=== PATIENT | female | born 1935 | race Caucasian/White ===

== ENCOUNTER → 2016-06-15 | Outpatient (CLI) | payer OTHER, BC ==
[~2016-06-15] MED LIST: CALCTAB7 PO; CHOL100027 PO; GLCSC500400 PO; TRIA0.1C55 TOP
[2016-06-15 16:49] LABS: BASO % 0.7 %; BASO ABS # 0.05 K/uL (0-0.2); COMPLETE YES; EOS % 3.8 %; HEMATOCRIT 43.2 % (37-47); IG% 0.4 %; LYMPH % 18.8 %; LYMPH ABS # 1.29 K/uL (1.2-3.4); MEAN CELL VOLUME 86.4 fL (80-100); MEAN CORPUSCULAR HGB CONC 34.7 g/dl (32-36); MEAN PLATELET VOLUME 9.4 fL (7.4-10.4); MONO % 14.6 %; NEUT % 61.7 %; PLATELET COUNT 197 K/uL (130-400); WHITE BLOOD COUNT 6.86 K/uL (4.8-10.8)
[2016-06-15 17:05] LABS: ALT/SGPT 38 U/L (12-78); AST/SGOT 24 U/L (15-37); BLOOD UREA NITROGEN 16 mg/dl (7-18); BUN/CREATININE RATIO 18.7 (10-20); CARBON DIOXIDE 31 mmol/L (21-32); CHLORIDE 106 mmol/L (98-107); CREATININE 0.86 mg/dl (0.60-1.20); GLUCOSE 78 mg/dl (70-99); POTASSIUM 4.3 mmol/L (3.5-5.1); SODIUM 142 mmol/L (136-145)
[2016-06-15 17:10] LABS: ALB/GLOB RATIO 1.5 (0.9-2); ALKALINE PHOSPHATASE 64 U/L (45-117); FERRITIN 67.9 ng/ml (8.0-388.0)
[2016-06-15 17:20] LABS: LYME DISEASE AB IGG NEG (NEG); LYME DISEASE AB IGM NEG (NEG)
[2016-06-16 05:46] LABS: ESTIMATED AVERAGE GLUCOSE 105 mg/dl; HA1C FLAG Normal (Normal)
== END | disposition home or self-care (01) ==
LOC: C.LABBFT 11:15
PROVIDERS: ATTEND Internal Medicine
DX: Z00.00 Encounter for general adult medical examination without abnormal findings (principal); A69.20 Lyme disease, unspecified; E78.5 Hyperlipidemia, unspecified; M19.90 Unspecified osteoarthritis, unspecified site; R73.01 Impaired fasting glucose; G62.9 Polyneuropathy, unspecified; R06.09 Other forms of dyspnea; G47.62 Sleep related leg cramps; E55.9 Vitamin D deficiency, unspecified

== ENCOUNTER → 2017-10-10 | Outpatient (CLI) | payer OTHER, BC | END | disposition home or self-care (01) | LOC: C.MAMM 13:08 | PROVIDERS: ATTEND Internal Medicine | DX: M85.89 Other specified disorders of bone density and structure, multiple sites (principal); Z78.0 Asymptomatic menopausal state ==

== ENCOUNTER → 2017-10-17 | Outpatient (CLI) | payer OTHER, BC ==
--- NOTE | 2017-10-17 15:12 | MAMMOGRAPHY REPORT ---
BILATERAL DIGITAL SCREENING MAMMOGRAM TOMOSYNTHESIS WITH CAD: 10/17/2017 CLINICAL HISTORY: Routine screening. Patient has no complaints. TECHNIQUE: The study was acquired using full field digital technology and interpreted from soft copy. Breast tomosynthesis in addition to standard 2D mammography was performed. Current study was also ev aluated with a Computer Aided Detection (CAD) system. COMPARISON: Comparison is made to exam dated: 04/06/2015 mammogram - [facility]. BREAST COMPOSITION: There are scattered areas of fibroglandular density in both breasts. FINDINGS: No suspicious masses, calcifications, or areas of architectural distortion are noted in either breast . There has been no significant interval change compared to prior exams. IMPRESSION: ACR BI-RADS CATEGORY 1: NEGATIVE There is no mammographic evidence of malignancy. A 1 year screening mammogram is recommended.( 019) The patient will receive written notification of the results. Some breast cancers are not detected with mammography. A negative mammographic report should not rachell y biopsy if a clinically suggestive mass is present. Jannet Javier M.D. ah/:10/17/2017 12:08:29 Provider Relations Specialist: Aisha Catherine RT(R)(M), [facility] letter sent: Normal /2 BI-RADS Code: ACR BI-RADS Category 1: Negative
== END | disposition home or self-care (01) ==
LOC: C.MAMM 11:08
PROVIDERS: ATTEND Internal Medicine
DX: Z12.31 Encounter for screening mammogram for malignant neoplasm of breast (principal)

== ENCOUNTER → 2017-10-30 | Outpatient (CLI) | payer OTHER, BC ==
--- NOTE | 2017-10-30 12:54 | DIAGNOSTIC IMAGING REPORT ---
THORACIC SPINE 3 VIEWS ROUTINE CLINICAL HISTORY: M81.0 [id number] back [id number] COMPARISON STUDY: No previous studies for comparison. FINDINGS: There is a thoracolumbar scoliosis. There are multilevel degenerative changes. No acute fractures are visualized. No destructive lesions are evident. IMPRESSION: Scoliosis and mild to moderate multilevel degenerative change. No acute fractures. Electronically signed by: Eric Hoang M.D. 10/30/2017 12:52 PM Dictated Date/Time: 10/30/2017 12:52 PM
[2017-10-30 13:55] LABS: CALCIUM 9.2 mg/dl (8.5-10.1)
== END | disposition home or self-care (01) ==
LOC: C.RAD1850 12:27
PROVIDERS: ATTEND Internal Medicine
DX: M81.0 Age-related osteoporosis without current pathological fracture (principal); M41.24 Other idiopathic scoliosis, thoracic region; M47.814 Spondylosis without myelopathy or radiculopathy, thoracic region

== ENCOUNTER 2018-10-15 18:29 | Observation (INO) ==
[2018-10-15 19:07] LABS: Basophils # (auto) 0.03 K/uL (0-0.2); Basophils % (auto) 0.3 %; Eosinophils # (auto) 0.19 K/uL (0-0.5); Hematocrit (blood only) 43.2 % (37-47); Hemoglobin 15.1 g/dL (12.0-16.0); Immature Granulocytes # (auto) 0.04 K/uL (0.00-0.02); Immature Granulocytes % (auto) 0.4 %; Lymphocytes # (auto) 1.24 K/uL (1.2-3.4); Lymphocytes % (auto) 13.2 %; Mean Corpuscular Volume 86.4 fL (80-100); Mean Platelet Volume 9.2 fL (7.4-10.4); Monocytes # (auto) 1.18 K/uL (0.11-0.59); Monocytes % (auto) 12.6 %; Neutrophils # (auto) 6.71 K/uL (1.4-6.5); Neutrophils % (auto) 71.5 %; Platelet Count 199 K/uL (130-400); RDW Coefficient of Variation 14.7 % (11.5-14.5); RDW Standard Deviation 46.1 fL (36.4-46.3); White Blood Count 9.39 K/uL (4.8-10.8)
--- NOTE | 2018-10-15 19:29 | XRay Report ---
XR chest 1V portable CLINICAL HISTORY: Forgetfulness, confusion COMPARISON STUDY: Chest radiograph and chest CT December 13, 2018. FINDINGS: Lung volumes are normal. Minimal left basilar opacity favors atelectasis. There is no pneum othorax or pleural effusion. Mild cardiomegaly is noted. Mediastinal contours are normal. There is no evidence for pulmonary edema. IMPRESSION: No acute cardiopulmonary findings. Electronically signed by: Taco Lynch M.D. 10/15/2018 7:27 PM
--- NOTE | 2018-10-15 19:35 | CT Scan Report ---
CT OF THE HEAD WITHOUT CONTRAST CLINICAL HISTORY: Memory loss. COMPARISON STUDY: No previous studies for comparison. CT DOSE: 537.48 mGy.cm TECHNIQUE: Helical axial images of the head were obtained without IV contrast. Automated exposure con trol was utilized for the study. A dose lowering technique was utilized adhering to the principles o f ALARA. FINDINGS: No acute intracranial hemorrhage, midline shift or mass effect is present. The ventricular system is unremarkable. The basilar cisterns are patent. No extra-axial collections are present. Ther e are no findings to suggest acute dural sinus thrombosis or acute territorial infarct. No significan t calvarial abnormalities are present. Left sphenoid sinus mucosal thickening is likely chronic. Mild atrophy is age-appropriate. IMPRESSION: No acute intracranial findings. Electronically signed by: Taco Lynch M.D. 10/15/2018 7:34 PM
[2018-10-15 19:37] LABS: Albumin Level 4.1 gm/dl (3.4-5.0); BUN Creatinine Ratio 15.8 (10-20); Bilirubin Direct 0.2 mg/dl (0-0.2); Blood Urea Nitrogen 13 mg/dl (7-18); Calcium 8.7 mg/dl (8.5-10.1); Carbon Dioxide 29 mmol/L (21-32); Chloride 106 mmol/L (98-107); Creatinine Clr Calc Pharmacy 34.6 ml/min; Est GFR (African American) 74.5; Est GFR (Non-African American) 64.3; Glucose 96 mg/dl (70-99); Potassium 3.7 mmol/L (3.5-5.1); Sodium 140 mmol/L (136-145)
[2018-10-15 19:48] LABS: Alanine Aminotransferase 27 U/L (12-78); Alkaline Phosphatase 42 U/L (45-117); Aspartate Aminotransferase 21 U/L (15-37); Bilirubin,Total 0.7 mg/dl (0.2-1); Total Protein 6.7 gm/dl (6.4-8.2); Troponin I < 0.015 ng/ml (0-0.045)
[2018-10-15 20:33] LABS: Appearance Urine Clear (Clear); Bacteria Urine Automated Negative (Negative); Bilirubin Urine Negative (Negative); Blood Urine Negative (Negative); Cast Urine Automated 0 /lpf (0-5); Color Urine Yellow; Glucose Urine UA Negative (Negative); Ketones Urine 1+ (Negative); Leukocyte Esterase Urine 1+ (Negative); Nitrite Urine Negative (Negative); Protein Urine Negative (Negative); RBC Urine Automated 0-4 /hpf (0-4); Specific Gravity Urine 1.015 (1.000-1.030); Urobilinogen Urine Negative (Negative); pH Urine 6.5 (4.5-7.5)
--- NOTE | 2018-10-15 21:58 | History & Physical Report ---
Date of Service October 15, 2018 Assessment & Plan (1) Altered mental status: #AMS Patient presents with a clinical history of altered mental status (mainly memory deficits) and bilateral hearing deficits. Imaging was unremarkable for stroke or other acute intracranial abnormalities. Upon presentation to the emergency department her cognitive function improved and she no longer had memory deficits. Given the acuity of these patients mental status changes, and no other definitive cause of her symptoms, she will be admitted for observation and stroke rule out. I am not certain whether her memory deficit symptoms are over exaggerated and really secondary to inability to hear versus a transient ischemic attack versus secondary to infection as noted below. Given that her daughter has a history of multiple sclerosis that began with peripheral neuropathy, the patient has peripheral neuropathy, and the patient is presenting with symptoms the could be an atypical form of multiple sclerosis if the inpatient work-up is negative could consider evaluation for multiple sclerosis as an outpatient -CT of brain negative for acute intracranial abnormalities Electrolytes within normal limits Brain MRI to rule out stroke VTE prophylaxis contraindicated secondary to concern for stroke -stoke protocol w/o tpa Consider referral for evaluation of multiple sclerosis as an outpatient #Hearing loss Patient's physical exam findings are not consistent with a sensory hearing loss, she demonstrated a normal Martines test, and an abnormal Rinne test on the right side. Indicating that sensory olivas her hearing was intact, she has the ability to hear however there is likely a conduction problem worse on the right side. Furthermore given the inability to adequately visualize the inner ear landmarks, the patient's borderline elevated white blood cell count, with a neutrophil predominance and elevated monocytes, clinical history of swimming in the [place], and past medical history of asthma I am concerned that this patient has otitis media secondary to eustachian tube dysfunction from seasonal allergies/asthma. 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 Patient presents to the [facility] emergency department for evaluation of mental status changes concerning for transient ischemic attack versus stroke. Patient presents with her daughter, who assisted with obtaining the medical history per the patient and her daughter the patient was in her usual state of health until last Saturday. Last Saturday they were swimming [place] while at their camp, and upon drying off and changing the patient began to notice that her hearing was becoming muffled. At that time the patient had no other symptoms including fever, chills, nausea, vomiting, vertigo, change in bowel or bladder function, motor or sensory dysfunction, or memory problems. As the weekend progressed the patient's family members began to notice that she was acting abnormal particularly with reference to her memory. She was becoming increasingly forgetful, particularly when he came to names. The patient also endorsed that during this timeframe her hearing was not good, however she did not want to admit this to her family members, so she acted as if her hearing was normal. The family reports additionally during the weekend she seemed zoned out but that is likely secondary to her not hearing. The patient's hearing did not improve throughout the weekend, and no other symptoms developed aside from the memory deficits. Today the patient drove herself to the ear nose and throat doctor for evaluation of her hearing difficulties, the ear nose and throat doctor was more concerned with her memory problems, and referred her to the primary care physician. She was evaluated by a PA at the PCPs office who felt that she perform significantly worse on her, only recalling one word, and was unable to recall the time she was asked to draw the clock face. She was referred for further evaluation and is there was concern for a CVA versus transient ischemic attack causing her hearing problems and memory issues On presentation to the ER today, all of her memory issues had returned to normal.Her head CT demonstrated no acute intracranial findings with the exception of mild atrophy that is age-appropriate. Her chest x-ray was negative for cardiopulmonary findings her CBC demonstrated white blood cell count of 9.3 with a neutrophil predominance of 6.7 elevation of monocytes of 1.18. A CMP was obtained and was within normal limits, TSH was normal, UA was negative, at the patient's request Lyme titers were ordered. The emergency department referred the patient to the inpatient team for admission. She was subsequently admitted to the observation service for further evaluation and management Of note patient does endorse that her mother had hx of TIA Allergies Allergy/AdvReac Type Severity Reaction Status Date / Time mold Allergy Unknown nasal Verified 10/15/18 21:37 congestion [place] Allergy Unknown nasal Uncoded 10/15/18 21:37 congestion Home Medications Home Medications Medication Instructions Recorded Confirmed Type biotin 2,500 mcg capsule 2,500 mcg PO DAILY 10/15/18 10/15/18 History cholecalciferol (vitamin D3) 2,000 2,000 units PO Q OTHER DAY 10/15/18 10/15/18 History unit capsule gabapentin 300 mg PO HS 10/15/18 10/15/18 History ginkgo biloba 40 mg capsule 40 mg PO Q OTHER DAY cap 10/15/18 10/15/18 History ketoconazole [Nizoral] 1 applic TOPICAL DAILY 10/15/18 10/15/18 History naproxen sodium [Aleve] 220 mg PO BID PRN 10/15/18 10/15/18 History valacyclovir 1 gram tablet 1,000 mg PO DAILY PRN 10/15/18 10/15/18 History cefdinir 300 mg PO BID 5 Days #13 cap 10/16/18 Rx Past Med/Surg History Medical History Asthma History of Lyme disease (Resolved) Surgical History S/P tonsillectomy Family History Mother , age 96 of heart issues. 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 When using a tuning fork, she stated her hearing deficit was worse in the right ear than the left ear( positive lydia on the right side). She had a negative Martines test. On visualization, bilateral tympanic membranes were not translucent, I was unable to visualize landmarks, right ear was slightly erythematous Neck: Normal visual inspection, trachea midline, negative JVD Cardiac: Regular rate and rhythm, normal S1, normal S2, I do not appreciate any murmurs rubs or gallops, negative pedal edema, negative calf tenderness Respiratory: Clear to auscultation bilaterally, symmetrical to chest rise, no increased work of breathing GI: Normal bowel sounds, soft, nontender, nondistended MSK: Moves all extremities, no focal motor or sensory deficits Skin: No new rashes Neuro: CN II through XII intact, motor function grossly intact, sensory function was grossly intact, no focal findings Psych: Calm, cooperative, pleasant Results & Data Vital Signs (Past 12 Hours) Vital Signs Temp Pulse Pulse Resp BP BP Pulse Ox 10/15/18 21:00 81 18 134/102 H 97 10/15/18 20:30 64 13 124/69 96 10/15/18 20:00 68 12 117/62 95 10/15/18 19:02 96 10/15/18 18:58 72 18 140/108 H 96 10/15/18 18:32 36.7 C 85 20 165/89 H 95 Laboratory Results 10/15/18 10/15/18 10/15/18 Range/Units 21:14 19:46 18:56 WBC (4.8-10.8) K/uL RBC (4.2-5.4) M/uL Hgb (12.0-16.0) g/dL Hct (37-47) % MCV (80-100) fL MCH (25-34) pg MCHC (32-36) g/dL RDW Std Deviation (36.4-46.3) fL RDW Coeff of Jere (11.5-14.5) % Plt Count (130-400) K/uL MPV (7.4-10.4) fL Immature Gran % (Auto) % Neut % (Auto) % Lymph % (Auto) % [place] % (Auto) % Eos % (Auto) % Baso % (Auto) % Immature Gran # (Auto) (0.00-0.02) K/uL Neut # (Auto) (1.4-6.5) K/uL Lymph # (Auto) (1.2-3.4) K/uL [place] # (Auto) (0.11-0.59) K/uL Eos # (Auto) (0-0.5) K/uL Baso # (Auto) (0-0.2) K/uL Sodium 140 (136-145) mmol/L Potassium 3.7 (3.5-5.1) mmol/L Chloride 106 (98-107) mmol/L Carbon Dioxide 29 (21-32) mmol/L Anion Gap 5.0 (3-11) BUN 13 (7-18) mg/dl Creatinine 0.84 (0.6-1.2) mg/dl Est Cr Clr Drug Dosing 34.6 ml/min Est GFR ( Amer) 74.5 Est GFR (Non-Af Amer) 64.3 BUN/Creatinine Ratio 15.8 (10-20) Glucose 96 (70-99) mg/dl Calcium 8.7 (8.5-10.1) mg/dl Total Bilirubin 0.7 Direct Bilirubin 0.2 AST 21 ALT 27 Alkaline Phosphatase 42 L Troponin I < 0.015 (0-0.045) ng/ml Total Protein 6.7 Albumin 4.1 TSH 1.520 Urine Color Yellow Urine Appearance Clear (Clear) Urine pH 6.5 (4.5-7.5) Ur Specific [place] 1.015 (1.000-1.030) Urine Protein Negative (Negative) Urine Glucose (UA) Negative (Negative) Urine Ketones 1+ H (Negative) Urine Blood Negative (Negative) Urine Nitrite Negative (Negative) Urine Bilirubin Negative (Negative) Urine Urobilinogen Negative (Negative) Ur Leukocyte Esterase 1+ H (Negative) Urine WBC (Auto) 1-5 (0-5) /hpf Urine RBC (Auto) 0-4 (0-4) /hpf U Hyaline Cast (Auto) 0 (0-5) /lpf U Epithel Cells (Auto) 5-10 H (0-5) /lpf Urine Bacteria (Auto) Negative (Negative) Lyme Disease IgG Ab Pending Lyme Disease IgM Ab Pending 10/15/18 10/15/18 Range/Units 18:56 18:56 WBC 9.39 (4.8-10.8) K/uL RBC 5.00 (4.2-5.4) M/uL Hgb 15.1 (12.0-16.0) g/dL Hct 43.2 (37-47) % MCV 86.4 (80-100) fL MCH 30.2 (25-34) pg MCHC 35.0 (32-36) g/dL RDW Std Deviation 46.1 (36.4-46.3) fL RDW Coeff of Jere 14.7 H (11.5-14.5) % Plt Count 199 (130-400) K/uL MPV 9.2 (7.4-10.4) fL Immature Gran % (Auto) 0.4 % Neut % (Auto) 71.5 % Lymph % (Auto) 13.2 % [place] % (Auto) 12.6 % Eos % (Auto) 2.0 % Baso % (Auto) 0.3 % Immature Gran # (Auto) 0.04 H (0.00-0.02) K/uL Neut # (Auto) 6.71 H (1.4-6.5) K/uL Lymph # (Auto) 1.24 (1.2-3.4) K/uL [place] # (Auto) 1.18 H (0.11-0.59) K/uL Eos # (Auto) 0.19 (0-0.5) K/uL Baso # (Auto) 0.03 (0-0.2) K/uL Sodium (136-145) mmol/L Potassium (3.5-5.1) mmol/L Chloride (98-107) mmol/L Carbon Dioxide (21-32) mmol/L Anion Gap (3-11) BUN (7-18) mg/dl Creatinine (0.6-1.2) mg/dl Est Cr Clr Drug Dosing ml/min Est GFR ( Amer) Est GFR (Non-Af Amer) BUN/Creatinine Ratio (10-20) Glucose (70-99) mg/dl Calcium (8.5-10.1) mg/dl Total Bilirubin Cancelled Direct Bilirubin Cancelled AST Cancelled ALT Cancelled Alkaline Phosphatase Cancelled Troponin I (0-0.045) ng/ml Total Protein Cancelled Albumin Cancelled TSH Cancelled Urine Color Urine Appearance (Clear) Urine pH (4.5-7.5) Ur Specific [place] (1.000-1.030) Urine Protein (Negative) Urine Glucose (UA) (Negative) Urine Ketones (Negative) Urine Blood (Negative) Urine Nitrite (Negative) Urine Bilirubin (Negative) Urine Urobilinogen (Negative) Ur Leukocyte Esterase (Negative) Urine WBC (Auto) (0-5) /hpf Urine RBC (Auto) (0-4) /hpf U Hyaline Cast (Auto) (0-5) /lpf U Epithel Cells (Auto) (0-5) /lpf Urine Bacteria (Auto) (Negative) Lyme Disease IgG Ab Lyme Disease IgM Ab Supervising Physician Co-Signing Physician Notes Attending addendum: I have physically seen this patient, have supervised the medical residents activities, and agree with the H&P unless as otherwise noted. Assessment and Plan: Altered mental status- Upon discussion with daughter who is present in exam room and patient, the patient has had some gradual decline in her memory abilities in particular over the past several months. Is more recently, associated with bilateral hearing deficits after exposure to loud sneeze, that the patient has felt her functioning is worse and somewhat. This may be more subjective than objective, and a function more of not being able to hear what is going on and processing that properly. CT of head is negative for acute findings. Laboratories are normal. Order MRI brain IAC with and without contrast. Order arterial hypercoagulable work-up. Of note, patient reports that she cannot take aspirin because it irritates her stomach. Depending upon how her work-up proceeds, she may be candidate for clopidogrel. Consult neurology. Hearing loss- Normal Martines test, and abnormal Rinne test to the right. Therefore more of a mechanical issue as opposed to a sensory issue. Augmentin as noted. Remainder of orders and notations as noted. PG Care Time/CCT Total # of Minutes Spent Total Time Spent with Patient: Total time spent is greater than 50% in quality control coordinator rdination of care (as documented) at patient's floor/unit and/or counseling patient: Resident Activity Tracking Resident Involvement: Resident Care Provided Care Provided: Adult Hospital Medicine (1) Altered mental status Altered mental status type: transient alteration of awareness Qualified Code(s): R40.4 - Transient alteration of awareness
[2018-10-15 22:20] LABS: Lyme Ab IgG w/WB Rflx Negative (Negative); Lyme Ab IgM w/WB Rflx Negative (Negative)
[2018-10-15] MEDS ORDERED: POLYETHYLENE (MIRALAX) 17 GM PACK PO PRN (23:29)
[2018-10-15] MEDS ORDERED: ALUMINUM/MAGNESIUM SUSP 30 ML UDC PO PRN (23:29)
[2018-10-15] MEDS ORDERED: ONDANSETRON INJ 2 MG/ML 2 ML VIAL IV PRN (23:29)
[2018-10-15] MEDS ORDERED: PHARMACIST DISCHARGE MED REC CONSULT PRN (23:29)
[2018-10-15] MEDS ORDERED: GINKGO BILOBA 40 MG PO SCH (23:29)
[2018-10-15] MEDS ORDERED: NAPROXEN 250 MG TAB PO PRN (23:29)
[2018-10-15] MEDS ORDERED: ACETAMINOPHEN 325 MG TAB PO PRN (23:29)
[2018-10-16] MEDS ORDERED: CEFDINIR 300 MG CAP PO ONE (00:30)
--- NOTE | 2018-10-16 00:30 | Emergency Department Note ---
Entered by Linda Phelan acting as a scribe for ED Provider Note Name: Bryn Yu Age: 83 Arrives Via: Private Vehicle Informant: Patient and daughter CC: Neurologic Symptoms. HPI: 83 year old female arrives for evaluation of possible neurologic symptoms for the past 5 days. She states she has experienced memory issues and hearing difficulty over the past few days. She saw an ENT PA-C who prescribed Prednisone, which she is supposed to start tomorrow. She then saw her PCP who noted her memory issues and referred her here to the ED. The patient denies any recent falls or trauma. She denies any chest pain, shortness of breath, nausea, vomiting or diarrhea. She states she was up at [place] camp this past weekend and was swimming in the [employer] when she noticed some ear fullness. A family member sneezed, and the patient then states her hearing became muffled and she started to hear a "buzzing sound". She denies any recent headache or weakness in the arms or legs. She denies any history of strokes. She states she has been treated for Lyme disease before. She denies any recent rashes. She does not take a daily blood thinner. ROS: See above HPI for pertinent positives & negatives. A total of 10 systems reviewed and were otherwise negative. Past Medical History: Bilateral hearing loss, peripheral neuropathy, Lyme disease, Dyslipidemia, Disc Degeneration, asthma, GERD Past Surgical History: Tonsillectomy Family History: No significant past medical history Social History: , lives with spouse. Home Medications: Gabapentin, vitamin D Allergies: Mold, maple tree. Physical: Vitals: Patient is hypertensive. Exam: GENERAL: Patient is elderly, frail, mildly anxious and appears to be in minimal distress. EYES: No scleral icterus, unremarkable pupils. ENT: Mucous membranes moist, no nasal congestion. Mild effusions of bilateral TM's. NECK: No masses appreciated, no meningismus, trachea is midline. RESPIRATORY: No dyspnea. Clear to auscultation and equal bilaterally. No wheeze, no rhonchi. CARDIOVASCULAR: Regular rate and rhythm. No murmurs, rubs, gallops appreciated. GASTROINTESTINAL: Abdomen soft, non-tender, no peritonitis. Bowel sounds positive. No masses appreciated. BACK: No midline tenderness, no CVA tenderness EXTREMITIES: Normal motion all extremities, no cyanosis, no edema. NEUROLOGIC: Alert and oriented, no acute motor or sensory deficits, no focal weakness, cranial nerves grossly intact. SKIN: No rash, no jaundice, no diaphoresis. ED Course: Prior Medical Record, Triage/Nursing Notes, Medications, Allergies reviewed by Me Vital Signs: reviewed and remarkable for Labs: Reviewed and remarkable for wnl Interventions: saline lock Imaging: CT OF THE HEAD WITHOUT CONTRAST CLINICAL HISTORY: Memory loss. COMPARISON STUDY: No previous studies for comparison. CT DOSE: 537.48 mGy.cm TECHNIQUE: Helical axial images of the head were obtained without IV contrast. Automated exposure control was utilized for the study. A dose lowering technique was utilized adhering to the principles of ALARA. FINDINGS: No acute intracranial hemorrhage, midline shift or mass effect is pres ent. The ventricular system is unremarkable. The basilar cisterns are patent. No extra-axial collections are present. There are no findings to suggest acute dural sinus thrombosis or acute territorial infarct. No significant calvarial abnormalities are present. Left sphenoid sinus mucosal thickening is likely chronic. Mild atrophy is age-appropriate. IMPRESSION: No acute intracranial findings. Electronically signed by: Taco Lynch M.D. 10/15/2018 7:34 PM XR chest 1V portable CLINICAL HISTORY: Forgetfulness, confusion COMPARISON STUDY: Chest radiograph and chest CT December 13, 2018. FINDINGS: Lung volumes are normal. Minimal left basilar opacity favors atelectasis. There is no pneumothorax or pleural effusion. Mild cardiomegaly is noted. Mediastinal contours are normal. There is no evidence for pulmonary edema. IMPRESSION: No acute cardiopulmonary findings. Electronically signed by: Taco Lynch M.D. 10/15/2018 7:27 PM EKG: Per My Interpretation: Indication AMS: NSR 69 bpm qtc 405, no ectopy nor ischemia. Similar 11/03/11 Consults: 2044: Dr. Rebolledo, [facility] Resident, is at the bedside. Dr. Woodard, [facility] Hospitalist is aware of the patient. Reassessments/Times: 1838: The patient was evaluated in room A11 and a complete history and physical were performed. 2009: I reevaluated the patient. She is comfortable and awaiting urinalysis results. 2028: I reevaluated the patient. She is requesting a Lyme test. I discussed my recommendation she remain in the hospital for further evaluation and management and she is agreeable with the plan. 2044: Dr. Rebolledo, [facility] Resident, is at the bedside. Dr. Woodard, [facility] Hospitalist is aware of the patient. Blood pressure: Elevated - Referred to PCP Disposition: Hospitalization Differentials: CVA, ACS, Infection, Electrolyte Abnormality, Lyme, amongst other pathologies. Medical Decision Making: Pleasant 83 yr old female arrives for evaluation of altered mental status. Essentially sounds like she is having transient global amnesia which is currently completely resolved, though seems like was very much occurring just a few hours ago at PCP. CT head looks OK. Labs alright and no evidence infection found. She is stable and in no distress. No clear stroke findings currently and symptoms on and off for a few days now. Patient will be brought in for further evaluation by hospitalist service. Family and patient comfortable with this plan. Impression: Altered mental status, hearing loss. Michael Corrales MD The scribe's documentation has been prepared under my direction and personally reviewed by me in its entirety. I confirm that the note above accurately reflects all work, treatment, procedures, and medical decision making performed by me. Impression & Plan Altered mental status, Hearing loss Past Med/Surg History Medical History Asthma History of Lyme disease (Resolved) Social History Preferred Language: Guamanian Communication Ability: Effective Train Control Electronic Technician Required: No Beliefs That Will Affect Care: None marital status: / Current Living Situation: Alone Current Living Situation Comment: dtr lives [address] Other Information That Helps Us Care for You: No Feels Safe at Home: Yes Safety Concerns: Feels Safe At This Time Smoking Status: Never smoker Do You Dip or Chew Tobacco: No ; Hx Alcohol Use: Yes Alcohol type: wine Hx Substance Use: No Results & Data Vital Signs Vital Signs - 24 hr 10/15/18 18:32 10/15/18 18:58 10/15/18 19:02 Temperature 36.7 C Temperature Source Oral Sepsis Recent Fever Within 48 Hours No Sepsis Action Taken by Nursing No Action Required Pulse Rate 85 Pulse Rate [Apical] 72 Pulse Rate from SpO2 Sensor Respiratory Rate 20 18 Blood Pressure 165/89 H Blood Pressure [Left Arm] 140/108 H Blood Pressure Mean 114 Blood Pressure Mean [Left Arm] 118 Pulse Oximetry 95 96 96 Oxygen Delivery Method Room Air Room Air Room Air 10/15/18 20:00 10/15/18 20:30 10/15/18 21:00 Temperature Temperature Source Sepsis Recent Fever Within 48 Hours Sepsis Action Taken by Nursing Pulse Rate 68 64 81 Pulse Rate [Apical] Pulse Rate from SpO2 Sensor 63 65 79 Respiratory Rate 12 13 18 Blood Pressure 117/62 124/69 134/102 H Blood Pressure [Left Arm] Blood Pressure Mean 80 87 112 Blood Pressure Mean [Left Arm] Pulse Oximetry 95 96 97 Oxygen Delivery Method Room Air Room Air Room Air 10/15/18 21:30 10/15/18 21:58 Temperature Temperature Source Sepsis Recent Fever Within 48 Hours Sepsis Action Taken by Nursing Pulse Rate 75 Pulse Rate [Apical] Pulse Rate from SpO2 Sensor Respiratory Rate 19 Blood Pressure 142/71 H Blood Pressure [Left Arm] Blood Pressure Mean 94 Blood Pressure Mean [Left Arm] Pulse Oximetry Oxygen Delivery Method Room Air Laboratory Data Result diagrams: 10/15/18 18:56 10/15/18 18:56 Lab Results 10/15/18 10/15/18 10/15/18 Range/Units 18:56 18:56 18:56 WBC 9.39 (4.8-10.8) K/uL RBC 5.00 (4.2-5.4) M/uL Hgb 15.1 (12.0-16.0) g/dL Hct 43.2 (37-47) % MCV 86.4 (80-100) fL MCH 30.2 (25-34) pg MCHC 35.0 (32-36) g/dL RDW Std Deviation 46.1 (36.4-46.3) fL RDW Coeff of Jere 14.7 H (11.5-14.5) % Plt Count 199 (130-400) K/uL MPV 9.2 (7.4-10.4) fL Immature Gran % (Auto) 0.4 % Neut % (Auto) 71.5 % Lymph % (Auto) 13.2 % [place] % (Auto) 12.6 % Eos % (Auto) 2.0 % Baso % (Auto) 0.3 % Immature Gran # (Auto) 0.04 H (0.00-0.02) K/uL Neut # (Auto) 6.71 H (1.4-6.5) K/uL Lymph # (Auto) 1.24 (1.2-3.4) K/uL [place] # (Auto) 1.18 H (0.11-0.59) K/uL Eos # (Auto) 0.19 (0-0.5) K/uL Baso # (Auto) 0.03 (0-0.2) K/uL Sodium 140 (136-145) mmol/L Potassium 3.7 (3.5-5.1) mmol/L Chloride 106 (98-107) mmol/L Carbon Dioxide 29 (21-32) mmol/L Anion Gap 5.0 (3-11) BUN 13 (7-18) mg/dl Creatinine 0.84 (0.6-1.2) mg/dl Est Cr Clr Drug Dosing 34.6 ml/min Est GFR ( Amer) 74.5 Est GFR (Non-Af Amer) 64.3 BUN/Creatinine Ratio 15.8 (10-20) Glucose 96 (70-99) mg/dl Calcium 8.7 (8.5-10.1) mg/dl Total Bilirubin Cancelled 0.7 Direct Bilirubin Cancelled 0.2 AST Cancelled 21 ALT Cancelled 27 Alkaline Phosphatase Cancelled 42 L Troponin I < 0.015 (0-0.045) ng/ml Total Protein Cancelled 6.7 Albumin Cancelled 4.1 TSH Cancelled 1.520 Urine Color Urine Appearance (Clear) Urine pH (4.5-7.5) Ur Specific Preston (1.000-1.030) Urine Protein (Negative) Urine Glucose (UA) (Negative) Urine Ketones (Negative) Urine Blood (Negative) Urine Nitrite (Negative) Urine Bilirubin (Negative) Urine Urobilinogen (Negative) Ur Leukocyte Esterase (Negative) Urine WBC (Auto) (0-5) /hpf Urine RBC (Auto) (0-4) /hpf U Hyaline Cast (Auto) (0-5) /lpf U Epithel Cells (Auto) (0-5) /lpf Urine Bacteria (Auto) (Negative) Lyme Disease IgG Ab (Negative) Lyme Disease IgM Ab (Negative) 10/15/18 10/15/18 Range/Units 19:46 21:14 WBC (4.8-10.8) K/uL RBC (4.2-5.4) M/uL Hgb (12.0-16.0) g/dL Hct (37-47) % MCV (80-100) fL MCH (25-34) pg MCHC (32-36) g/dL RDW Std Deviation (36.4-46.3) fL RDW Coeff of Jere (11.5-14.5) % Plt Count (130-400) K/uL MPV (7.4-10.4) fL Immature Gran % (Auto) % Neut % (Auto) % Lymph % (Auto) % [place] % (Auto) % Eos % (Auto) % Baso % (Auto) % Immature Gran # (Auto) (0.00-0.02) K/uL Neut # (Auto) (1.4-6.5) K/uL Lymph # (Auto) (1.2-3.4) K/uL [place] # (Auto) (0.11-0.59) K/uL Eos # (Auto) (0-0.5) K/uL Baso # (Auto) (0-0.2) K/uL Sodium (136-145) mmol/L Potassium (3.5-5.1) mmol/L Chloride (98-107) mmol/L Carbon Dioxide (21-32) mmol/L Anion Gap (3-11) BUN (7-18) mg/dl Creatinine (0.6-1.2) mg/dl Est Cr Clr Drug Dosing ml/min Est GFR ( Amer) Est GFR (Non-Af Amer) BUN/Creatinine Ratio (10-20) Glucose (70-99) mg/dl Calcium (8.5-10.1) mg/dl Total Bilirubin Direct Bilirubin AST ALT Alkaline Phosphatase Troponin I (0-0.045) ng/ml Total Protein Albumin TSH Urine Color Yellow Urine Appearance Clear (Clear) Urine pH 6.5 (4.5-7.5) Ur Specific Preston 1.015 (1.000-1.030) Urine Protein Negative (Negative) Urine Glucose (UA) Negative (Negative) Urine Ketones 1+ H (Negative) Urine Blood Negative (Negative) Urine Nitrite Negative (Negative) Urine Bilirubin Negative (Negative) Urine Urobilinogen Negative (Negative) Ur Leukocyte Esterase 1+ H (Negative) Urine WBC (Auto) 1-5 (0-5) /hpf Urine RBC (Auto) 0-4 (0-4) /hpf U Hyaline Cast (Auto) 0 (0-5) /lpf U Epithel Cells (Auto) 5-10 H (0-5) /lpf Urine Bacteria (Auto) Negative (Negative) Lyme Disease IgG Ab Negative (Negative) Lyme Disease IgM Ab Negative (Negative) Discharge Plan Visit Data *Final* Discharge Date/Time: 10/15/18 23:15 Chief Complaint: Neuro Symptoms/Deficit Stated Complaint: HEARING LOSS, RINGING/BUZZING IN EARS, MEMORY LOSS ED Provider: Michael Corrales Discharge Problem: Altered mental status, Hearing loss Patient Disposition: Admitted As Inpatient Discharge Instructions Interventions: ED Discharge Assessment Last Done: 10/15/18 23:15 Discharge Problem: Altered mental status Qualifiers: Altered mental status type: transient alteration of awareness Qualified Code(s): R40.4 - Transient alteration of awareness Hearing loss Qualifiers: Hearing loss type: other Laterality: bilateral Qualified Code(s): H91.8X3 - Other specified hearing loss, bilateral The scribe's documentation has been prepared under my direction and personally reviewed by me in its entirety. I confirm that the note above accurately reflects all work, treatment, procedures, and medical decision making performed by me.
[2018-10-16] MEDS ORDERED: GADOBUTROL 65ML VIAL IV PRN (01:55)
--- NOTE | 2018-10-16 07:07 | Magnetic Resonance Report ---
MRI OF THE BRAIN INTERNAL AUDITORY CANAL PROTOCOL CLINICAL HISTORY: acute loss of hearing, dysequilibrium COMPARISON STUDY: Head CT October 15, 2018. TECHNIQUE: Utilizing a 1.5 Idalmis magnet and dedicated coil, multiplanar, multiecho imaging of the br ain was performed pre and postcontrast administration with thin cut imaging through the internal ese tory canals. IV administration of 4.4 mL of Gadavist contrast was uneventful. FINDINGS: There are no foci of restricted diffusion to suggest acute infarct. No acute intracranial h emorrhage, midline shift or mass effect is present. Age-appropriate atrophy is noted. Ventricular sys tem is unremarkable. Basilar cisterns are patent. There are no extra-axial collections. Flow-voids fo r the major intracranial vessels are present. There is no intracranial mass or pathologic enhancement . No abnormality within the internal auditory canals is noted. No mastoid fluid. Left sphenoid sinus fluid and mucosal thickening is noted. Mild white matter T2 hyperintense foci suggest small vessel di sease. IMPRESSION: 1. No acute intracranial findings. 2. No abnormalities within the internal auditory canals. 3. Left sphenoid sinus mucosal thickening and fluid. Electronically signed by: Taco Lynch M.D. 10/16/2018 7:05 AM
[2018-10-16 07:35] LABS: Basophils # (auto) 0.05 K/uL (0-0.2); Basophils % (auto) 0.6 %; Eosinophils # (auto) 0.38 K/uL (0-0.5); Eosinophils % (auto) 4.7 %; Hematocrit (blood only) 42.9 % (37-47); Immature Granulocytes # (auto) 0.05 K/uL (0.00-0.02); Immature Granulocytes % (auto) 0.6 %; Lymphocytes # (auto) 1.39 K/uL (1.2-3.4); Lymphocytes % (auto) 17.3 %; Mean Corpuscular Volume 86.7 fL (80-100); Mean Platelet Volume 9.5 fL (7.4-10.4); Monocytes # (auto) 1.13 K/uL (0.11-0.59); Neutrophils # (auto) 5.05 K/uL (1.4-6.5); Neutrophils % (auto) 62.8 %; Platelet Count 200 K/uL (130-400); RDW Coefficient of Variation 14.8 % (11.5-14.5); RDW Standard Deviation 46.7 fL (36.4-46.3); Red Blood Count 4.95 M/uL (4.2-5.4); White Blood Count 8.05 K/uL (4.8-10.8)
[2018-10-16 07:47] LABS: Estimated Average Glucose 108 mg/dl; Hemoglobin A1C 5.4 % (4.5-5.6)
[2018-10-16 08:06] LABS: BUN Creatinine Ratio 13.4 (10-20); Calcium 8.8 mg/dl (8.5-10.1); Creatinine Clr Calc Pharmacy 36.3 ml/min; Est GFR (Non-African American) 68.2; Potassium 3.8 mmol/L (3.5-5.1)
[2018-10-16] MEDS ORDERED: NON-FORMULARY MEDICATION (Biotin 2,500 MCG) PO SCH (09:00)
[2018-10-16] MEDS ORDERED: CHOLECALCIFEROL 1,000 UNITS TAB PO SCH (09:00)
[2018-10-16] MEDS ORDERED: CEFDINIR 300 MG CAP PO SCH (09:00)
[2018-10-16] MEDS ORDERED: KETOCONAZOLE TOP SCH (09:00)
--- NOTE | 2018-10-16 10:51 | Neurology Consultation ---
Date of Consultation October 16, 2018 Assessment & Plan (1) Hearing loss: (2) Memory changes: (3) Peripheral neuropathy: Patient has chronic (1-2 year) history of short-term memory loss and hearing loss. Recently she has had an increase of hearing loss right greater than left side with the addition of tinnitus as well as a more acute decrease in short-term memory. On examination, patient has no focal neurologic findings, meningeal signs, or encephalopathy. She does have some short-term memory problems and conduction problems with decreased hearing right greater than left ear. There is some fluid in her inner ears bilaterally. MRI of the brain shows no acute findings and she has very little in the way of old, small vessel ischemia considering her age. Therefore, there is no evidence of stroke or TIA in this patient. I suspect inner ear infections creating hearing loss. Patient has a mild underlying short-term memory loss/dementia which has been made worse this past week with the infections. Patient has a history of small fiber polyneuropathy for many years. She has dysesthesias and neuropathic pain with this. Gabapentin helps the higher doses give her memory problems. Recommendations: 1. Continue treatment with antibiotics and decongestants for her ears. 2. For now, Gabapentin can be continued for her neuropathic pain, but as an outpatient, consider other medications to help neuropathic pain, that would make not her so sleepy. 3. Consider complete neuropsychological testing as an outpatient, noted to fully assess her memory. 4. Otherwise, I have no further neurologic testing or treatment recommendations to make at this time. The patient follows with Dr. Milian, who should see her as an outpatient. Overall, I spent a total of 105 minutes with this case including review of records, review of MRI films, direct evaluation the patient at bedside, and discussion of the case with the patient at bedside, her daughter at bedside, and Dr. Guadarrama, including differential diagnosis and treatment options. History of Present Illness Reason for Consultation: Patient is an 83-year-old, who I was asked to see at the request of Dr. Woodard, for neurologic consultation regarding possible stroke. Requesting Physician: Dr. Woodard Attending Physician: Nikolay Conley, History of Present Illness Patient has a longstanding history of small fiber polyneuropathy, followed by Dr. Rodney Milian, neurology, for the last 11 years. He has tried a number of medications for her neuropathic pain from this polyneuropathy including Lyrica and Cymbalta which gave her side effects and Requip which did not help. Currently she is on gabapentin. Low-dose is do not help. Higher doses do help but the higher the dose the more she gets some cognitive impairment. She will take 300 milligrams each evening and this will last about 6 hours. Patient had a history of Lyme disease treated with oral antibiotics about 10 years ago. Recently, in July of this year, she had a tick on her. She has not had any new joint problems or rashes however. The patient, and her daughter who is present at bedside today, stated there has been some problems with short-term memory of a gradual progressive nature for the last 1-2 years. She is most forgetful with names but occasionally she has difficulty remembering why she walked into a room or remembering what is been just said to her. Apparently, her short-term memory has been getting a little worse in general. She has not had any personality changes and she is driving well, not getting lost. She does not have any significant anxiety, depression, mood swings, or paranoia. Patient feels that she has had some hearing loss over the last 2 years bilaterally. She has never had any ear pain and no tinnitus until recently. Two weekends ago she was at her family camp outside at [place] and swimming in the [place]. She did the same this past weekend and on October 10, she was swimming again and later that day was subject to a very loud sneeze that was close to her head. After this sneeze she had a shock wave of some tinnitus which created vibration in her ears and muffled hearing. She did not have ear pain. The right ear was worse than the left. She continues to have this over the next several days. She saw ENT who wanted to prescribe steroids. Since the weekend (October 10 on) she has had significant decrease short-term memory with trouble naming. The family has noted this over several days. She saw Ofelia HOUGH on October 15 who noted decreased hearing right greater than left ear, tinnitus, and short-term memory loss with an altered mental sta tus exam compared to normal. She was sent to the emergency room. She arrived at 1832 on October 15 with a temperature of 36.7, pulse 85 and regular, respiratory rate 20, blood pressure 165/89, and O2 saturation 94 percent. On physical exam she had a little bit of memory problems and decreased conductive hearing loss. CT scan of the head was unremarkable. Chest x-ray was unremarkable. CBC, Chem profile, TSH, and urinalysis were unremarkable. Lyme antibody titer was normal. MRI of the brain showed mild generalized atrophy and minimal old small vessel ischemic disease. There was no acute change our stroke and MRI actually looks very good for her age. She was initiated on Augmentin antibiotic. Overnight last night she felt that her hearing was back to normal with no muffled sounds and no tinnitus. When she got up this morning slowly it has been getting more muffled again. She denies headache, new vision problems, balance problems, numbness or weakness of her arms and legs of a new nature, incontinence of urine, or speech problems. Allergies Allergy/AdvReac Type Severity Reaction Status Date / Time mold Allergy Unknown nasal Verified 10/15/18 21:37 congestion [place] Allergy Unknown nasal Uncoded 10/15/18 21:37 congestion Home Medications Home Medications Medication Instructions Recorded Confirmed Type biotin 2,500 mcg capsule 2,500 mcg PO DAILY 10/15/18 10/15/18 History cholecalciferol (vitamin D3) 2,000 2,000 units PO Q OTHER DAY 10/15/18 10/15/18 History unit capsule gabapentin 300 mg PO HS 10/15/18 10/15/18 History ginkgo biloba 40 mg capsule 40 mg PO Q OTHER DAY cap 10/15/18 10/15/18 History ketoconazole [Nizoral] 1 applic TOPICAL DAILY 10/15/18 10/15/18 History naproxen sodium [Aleve] 220 mg PO BID PRN 10/15/18 10/15/18 History valacyclovir 1 gram tablet 1,000 mg PO DAILY PRN 10/15/18 10/15/18 History Patient History Medical History Asthma History of Lyme disease (Resolved) Surgical History S/P tonsillectomy Family History Mother , age 96 of heart issues. 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 Other Information That Helps Us Care for You: No Feels Safe at Home: Yes Safety Concerns: Feels Safe At This Time Smoking Status: Never smoker Do You Dip or Chew Tobacco: No ; Hx Alcohol Use: Yes Alcohol type: wine Alcohol type Comment: One or 2 half gl asses of wine per week Hx Substance Use: No Review of Systems Constitutional: no fever, no fatigue and no weakness Eyes: no diplopia, no eye pain and no worsening vision Ear, Nose, Mouth, Throat: + tinnitus and + hearing loss; no ear pain, no dizziness, no snoring, no hoarseness and no dysphagia Respiratory: no cough and no dyspnea Cardiovascular: no chest pain, no palpitations and no lightheadedness Gastrointestinal: no abdominal pain, no nausea and no vomiting Genitourinary: no dysuria, no urinary frequency and no urinary incontinence Musculoskeletal: no back pain, no neck pain, no radicular pain, no joint pain and no myalgia Integumentary: no rash and no lesions Neurologic: + memory loss; no gait abnormality, no localized weakness, no generalized weakness, no tingling, no numbness, no tremor(s), no abnormal movements, no headache(s), no abnormal speech and no confusion Psychiatric: no depression, no irritability, no anxiety, no difficulty concentrating, no confusion and no hallucinations Endocrine: no fatigue and no flushing Hematologic / Lymphatic: no easy bleeding and no easy bruising Allergy / Immunological: no urticaria and no problem reported Physical Exam Physical Exam: The patient is right-handed. The patient is awake, alert, and attentive. Speech is normal without any aphasia or dysarthria. She can name objects, repeat phrases, and has normal spontaneous speech. Mentation and thought processes are intact, with orientation to person, place and time, and normal fund of knowledge to conv ersational. Attention and concentration are normal. Mood and affect are normal and appropriate. General appearance and grooming are normal. Short term memory is impaired. Long-term memory seems intact. The discs are sharp with positive venous pulsations bilaterally. There are no exudates, hemorrhages, or blood vessel changes seen. Pupils are 4 mm bilaterally and reactive to light. Extraocular eye muscles are intact without nystagmus. Visual acuity and visual betancourt seem normal grossly to confrontation. There are no deficits to sensation in the face in all 3 distributions of the fifth cranial nerve bilaterally. Corneal reflexes are positive bilaterally. Facial strength and symmetry was normal bilaterally. Hearing is decreased bilaterally. Tuning fork localizes to the right ear on her forehead. Air conduction is greater than bone conduction on the left, but bone conduction is greater than air conduction on the right. She has decreased sensation to finger rub bilaterally. Palate moves well without asymmetry. There is normal sternocleidomastoid and trapezius (shoulder shrug) strength bilaterally. Tongue is midline with good strength bilaterally. Neck has a full range of motion without discomfort. There are no cervical bruits bilaterally. There are no cranial or ocular bruits. Heart is without murmur. There is a regular rhythm and rate. Cervical, thoracic, and lumbar spine are nontender to palpation. Gait is narrow based, with good arm swing, turns, and stance. Balance is normal eyes open or closed. With outstretched arms there is no drift. There are no resting, postural, or action tremors. There is no ataxia with finger to nose testing. There is good facility in the hands. No other abnormal involuntary movements are noted. Motor strength is 5/5 diffusely in the arms bilaterally including deltoids, biceps, triceps, brachioradialis, wrist flexors and extensors, inbound call center representative, and intrinsic hand muscles. Motor strength is 5/5 diffusely in the legs bilaterally including hip flexors, quadriceps, hamstrings, gastrocnemius, tibialis anterior, tibialis posterior, and Peroneii muscles. Toe extensors are normal and there is good bulk in the extensor digitorum brevis muscles bilaterally. The limbs have good tone without rigidity or spasticity. There is no atrophy noted in the muscles. Muscle bulk is normal, there is no tenderness to palpation, no myotonia to percussion, and no fasciculations seen. Sensory examination is intact to touch and pin throughout all 4 limbs diffusely. Vibratory and position sense testing is normal bilaterally as well. There is normal sensation to temperature. Reflexes are 2/4 in the biceps, triceps, and brachioradialis tendons bilaterally. Quadriceps tendon reflexes are trace bilaterally and Achilles tendon reflexes are absent bilaterally. There is no clonus bilaterally. Toes are downgoing with plantar stimulation bilaterally. Peripheral pulses are present and of normal quality distally in all 4 limbs. There is no peripheral edema noted in the limbs. Results & Data Vital Signs (Past 12 Hours) Vital Signs Temp Pulse Pulse Pulse Resp BP BP 10/16/18 06:55 36.7 C 81 20 95/56 L 10/16/18 04:00 36.8 C 57 L 18 103/59 L 10/16/18 00:00 85 10/15/18 23:29 36.9 C 68 18 151/65 H 10/15/18 22:58 61 18 125/58 L Pulse Ox 10/16/18 06:55 97 10/16/18 04:00 97 10/16/18 00:00 10/15/18 23:29 96 10/15/18 22:58 95 Diagnostic Findings MRI OF THE BRAIN INTERNAL AUDITORY CANAL PROTOCOL CLINICAL HISTORY: acute loss of hearing, dysequilibrium COMPARISON STUDY: Head CT October 15, 2018. TECHNIQUE: Utilizing a 1.5 Idalmis magnet and dedicated coil, multiplanar, multiecho imaging of the brain was performed pre and postcontrast administration with thin cut imaging through the internal auditory canals. IV administration of 4.4 mL of Gadavist contrast was uneventful. FINDINGS: There are no foci of restricted diffusion to suggest acute infarct. No acute intracranial hemorrhage, midline shift or mass effect is present. Age- appropriate atrophy is noted. Ventricular system is unremarkable. Basilar cisterns are patent. There are no extra-axial collections. Flow-voids for the major intracranial vessels are present. There is no intracranial mass or pathologic enhancement. No abnormality within the internal auditory canals is noted. No mastoid fluid. Left sphenoid sinus fluid and mucosal thickening is noted. Mild white matter T2 hyperintense foci suggest small vessel disease. IMPRESSION: 1. No acute intracranial findings. 2. No abnormalities within the internal auditory canals. 3. Left sphenoid sinus mucosal thickening and fluid. Electronically signed by: Taco Lynch M.D. 10/16/2018 7:05 AM PG Care Time/CCT Total # of Minutes Spent Total Time Spent with Patient: 105 minutes. Total time spent is greater than 50% in coordination of care (as documented) at patient's floor/unit and/or counseling patient: (1) Hearing loss Hearing loss type: other Laterality: bilateral Qualified Code(s): H91.8X3 - Other specified hearing loss, bilateral
[2018-10-16] MEDS ORDERED: STROKE PATIENT DISCHARGE STA (12:06)
--- NOTE | 2018-10-16 13:14 | Discharge Summary ---
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 Patient presents to the [facility] emergency department for evaluation of mental status changes concerning for transient ischemic attack versus stroke. Patient presents with her daughter, who assisted with obtaining the medical history per the patient and her daughter the patient was in her usual state of health until last Saturday. Last Saturday [place], and upon drying off and changing the patient began to notice that her hearing was becoming muffled. At that time the patient had no other symptoms including fever, chills, nausea, vomiting, vertigo, change in bowel or bladder function, motor or sensory dysfunction, or memory problems. As the weekend progressed the patient's family members began to notice that she was acting abnormal particularly with reference to her memory. She was becoming increasingly forgetful, particularly when he came to names. The patient also endorsed that during this timeframe her hearing was not good, however she did not want to admit this to her family members, so she acted as if her hearing was normal. The family reports additionally during the weekend she seemed zoned out but that is likely secondary to her not hearing. The patient's hearing did not improve throughout the weekend, and no other symptoms developed aside from the memory deficits. Today the patient drove herself to the ear nose and throat doctor for evaluation of her hearing difficulties, the ear nose and throat doctor was more concerned with her memory problems, and referred her to the primary care physician. She was evaluated by a PA at the PCPs office who felt that she perform significantly worse on her, only recalling one word, and was unable to recall the time she was asked to draw the clock face. She was referred for further evaluation and is there was concern for a CVA versus transient ischemic attack causing her hearing problems and memory issues On presentation to the ER today, all of her memory issues had returned to normal.Her head CT demonstrated no acute intracranial findings with the exception of mild atrophy that is age-appropriate. Her chest x-ray was negative for cardiopulmonary findings her CBC demonstrated white blood cell count of 9.3 with a neutrophil predominance of 6.7 elevation of monocytes of 1.18. A CMP was obtained and was within normal limits, TSH was normal, UA was negative, at the patient's request Lyme titers were ordered. The emergency department referred the patient to the inpatient team for admission. She was subsequently admitted to the observation service for further evaluation and management Of note patient does endorse that her mother had hx of TIA Admission Exam Per Admitting Provider General: Elderly lady in no acute distress HEENT: Normocephalic atraumatic Ears: Patient reports bilateral buzzing in her ears. When using a tuning fork, she stated her hearing deficit was worse in the right ear than the left ear(positive lydia on the right side). She had a negative Martines test. On visualization, bilateral tympanic membranes were not translucent, I was unable to visualize landmarks, right ear was slightly erythematous Neck: Normal visual inspection, trachea midline, negative JVD Cardiac: Regular rate and rhythm, normal S1, normal S2, I do not appreciate any murmurs rubs or gallops, negative pedal edema, negative calf tenderness Respiratory: Clear to auscultation bilaterally, symmetrical to chest rise, no increased work of breathing GI: Normal bowel sounds, soft, nontender, nondistended MSK: Moves all extremities, no focal motor or sensory deficits Skin: No new rashes Neuro: CN II through XII intact, motor function grossly intact, sensory function was grossly intact, no focal findings Psych: Calm, cooperative, pleasant Principal Diagnosis Acute Otitis Media Discharge Exam Constitutional WD/WN, vitals as above Eyes PERRL, conjunctivae normal, anicteric sclerae ENMT Ears: + hearing impairment (R worse than L ) and + TM abnormality (Serous fluid noted behind TM B/L, R>L); no external ear abnormality Neck trachea midline, no thyromegaly Respiratory normal respiratory effort, lungs clear to auscultation Cardiovascular RRR, no murmur, no edema Gastrointestinal (Abdomen) normal bowel sounds, soft, nontender, no hepatosplenomegaly Neurologic PERRL, EOMI, accommodation nl, no face palsy, no dysarthria CN's II-XI intact bilaterally and awake; not confused and not obtunded Speech / Cognition: normal speech Limited sensation of distal LE B/L Psychiatric A+Ox3, euthymic affect Discharge Data Allergies Allergy/AdvReac Type Severity Reaction Status Date / Time mold Allergy Unknown nasal Verified 10/15/18 21:37 congestion [place] Allergy Unknown nasal Uncoded 10/15/18 21:37 congestion Consultations 10/15/18 20:37 ED Decision to Admit Stat 10/15/18 23:29 Consult Case Management - Discharge Planning Routine Consult Neurology Routine Ordered Studies 10/15/18 18:47 CT head/brain wo con Stat 10/16/18 00:23 MR brain IAC wo/w con Urgent Hospital Course (1) Altered mental status: Altered Mental Status vs Hearing loss secondary to AOM. -Patient arrived to ED with complaints of memory deficits and b/l hearing loss -Imaging from head CT, MRI were negative for stroke or other acute intracranial abnormalities. -Patient noted that part of her poor memory with names may be secondary to not being able to hear as well as of recent. -Patient did not recent water exposure [place] and that her hearing issues began shortly afterwards. -Neurology was consulted - patients neurology examination was negative. -Recommended future neuropsychological work up in outpatient setting -Patient started on Cefdinir 300mg BID -Patient improvement in symptoms, D/C on oral Cefdinir and Afrin to aid in nasal congestion. (2) Hearing loss: (3) Acute otitis media: Total Time Total Time Spent Total Time Spent (In Minutes): Less than 30 Discharge Plan Discharge Items Patient Disposition: Home - Self-Care Reason For Visit: AMS Discharge Diagnosis: hearing loss related to otitis media Discharge Goals: Diagnostic testing and Therapeutic intervention Activity: Resume your previous activity Non-emergency contact: Primary Care Provider and Specialist Call non-emergency contact if: you have any medication questions and your symptoms worsen Follow-up/Referrals: Tabby Lynch MD [Primary Care Provider] - 10/22/18 3:00 pm (Please, follow up at Dr. Lynch's office with her family practice physician assistant, Jennifer Theodore PA-C, on SaturdayOctober 22 at 3:00 pm. *If you need to change this appointment, call the office at [phone].) Diet: Regular Addtl Provider Instructions: hearing loss -it appears that your hearing loss is most likely a result of otitis media (middle ear infection) - which in turn was likely caused by eustacian tube dysfunction (the tube that equalizes pressure to the middle ear) -The eustachian tube frequently will get clogged or into spasm with changes in pressure, it is quite likely that swimming combined with some bad luck was what led to your eustachian tube getting squeezed down. -We will treat the infection with an antibiotic called Cefdinirtake it twice a day for the full course of 7 days (next dose tonight) -Work on opening up the eustachian tube with the multiple measures that we talked about (pumping on your ear from the outside, chewing gum, and utilizing Afrinsee below) -Follow-up with your primary care doctor next week to ensure things appear to be improving. Most of the time they will, every now and then people do need an extended or altered course of antibiotic -Follow-up with your previously scheduled ENT visit, arbitrarily we would expect hearing loss related to this problem to improve over a few weeks time at the most. It is perfect timing that you have follow-up with them set for a few weeks from now. -Afrin (oxymetazoline) is a very potent decongestant that works by constricting blood vessels to mucous membranes. It should help relieve sinus congestion, and may improve the eustachian tube dysfunction more quickly. The trick with Afrin is that mucous membranes quickly get "addicted" where if you use it too frequently you can start to have congestion simply for lack of the medicine. To keep safe from that, use it for no more than 3 days (no more than 6 doses), and after that stop using it whether you feel good bad or in between. As we discussed, while normally a nasal spray would be something you want to only spray in your nose, to help open up the eustachian tube, use it "sloppy" for your 6 doses (3 days)actually feel it dripping down the back of your throat to know that it is getting on the eustachian tube opening. This will be a little unpleasant, and like I said, you can be mad at me when you use the dosing! Forgetfulness -Mild forgetfulness is an extremely common finding. Usually very nonspecific. In the context of being sick with an ear infection and having some hearing loss right now, it is not at all surprising that you would have a little bit of forgetfulness. That said, anything that seems to be persistent or progressive would be worth following up on. For now pay close attention, and have your family pay close attention, and follow-up with your primary care doctor regularly to follow your memory. Prescriptions: New cefdinir 300 mg capsule 300 mg PO BID 5 Days Qty: 13 RF: 0 Continued biotin 2,500 mcg capsule 2,500 mcg PO DAILY RF: 0 ginkgo biloba 40 mg capsule 40 mg PO Q OTHER DAY RF: 0 valacyclovir 1 gram tablet 1,000 mg PO DAILY PRN (Reason: Cold Sores) RF: 0 cholecalciferol (vitamin D3) 2,000 unit capsule 2,000 units PO Q OTHER DAY RF: 0 gabapentin 300 mg capsule 300 mg PO HS RF: 0 ketoconazole [Nizoral] 2 % shampoo 1 applic topical DAILY RF: 0 naproxen sodium [Aleve] 220 mg Tablet 220 mg PO BID PRN (Reason: Pain) RF: 0 Stand-Alone Forms: [facility] Discharge Orders: Discharge Order (Routine); Ordered 10/16/18 Ordered By: Nikolay Conley Admission Data Admit Date/Time: 10/15/18 22:38 Attending Provider: Nikolay Conley Admit Provider: George Krueger I. Primary Care Provider: Tabby Lynch Other Providers: Henry Woodard Emile Pierre III Service: Telemetry Medical Other Interventions: Discharge Summary Assessment (RN) Last Done: 10/16/18 12:16 DC Date/Time DO NOT enter until pt leaves facility: 10/16/18 12:22 Supervising Physician Co-Signing Physician Notes I personally examined the patient and verified all soler points of history and exam, discussed case, and agree with decision making with Dr Guadarrama. Feeling okay. No new complaints. Extensively explained assessment and plan, patient and daughter both expressed good understanding, answered all questions the best my ability. Vitals noted, in general she is awake and alert pleasant no distress. May be slightly hard of hearing but able to communicate well. HEENT normocephalic atraumatic mucous membranes moist. Breathing unlabored no accessory muscle use good effort. Skin shows no rashes no pallor or icterus. Hearing lossappears to be related to otitis. Finish course of antibiotics with Ceftin ear. Eustachian tube modalities taught to patient. See discharge instructions otherwise. Follow-up PCP, already has ENT follow-up scheduled. Memory lossseems to be mild, possibly situational. Discussed long-term follow- up, as well as vigilance for any other hints of other memory issues. To clarify, after further review this does not appear to be TIA/CVA related. Stable for discharge to home. Resident Activity Tracking Resident Involvement: Resident Care Provided Care Provided: Adult [facility]
[2018-10-16] MEDS ORDERED: GABAPENTIN 300 MG CAP PO SCH (21:00)
== END 2018-10-16 12:22 | disposition home or self-care (01) ==
LOC: ED 18:29 → INTOOBSV 22:38 → SUATTDRO 22:38 → 2W 22:38